=== PATIENT | female | born 1955 | race Two or more races ===

== ENCOUNTER 2019-01-21 13:15 | Inpatient (IN) | payer MEDICARE, OTHER ==
[~2019-01-21] VITALS: Ht 152.4 cm; Wt 132.0 kg
--- NOTE | 2019-01-21 13:30 | NUR ---
[id number] FRM HOME C/O WORSENING SOB. BLE EDEMA NOTED. BG 198 PRINT PROJECT MANAGER. PT AAOX4, VSS. DENIES CP, DIZZINESS, N/V, WEAKNESS AT THIS TIME. DR. QUINTANILLA AT BS FOR EVAL. PLACED ON SPACE OPERATIONS OFFICER. PLACED ON O2 2L, 97%, PT AMMON WELL. WILL CONT TO MONITOR. DAUGHTER AT BS.
[2019-01-21] MEDS ORDERED: MAG HYDROX/AL HYDROX/SIMETH 30 ML UDC ONE (13:56)
[2019-01-21] MEDS ORDERED: LIDOCAINE VISCOUS 2% UD 15 ML UDC ONE (13:56)
[2019-01-21 13:59] LABS: BASOPHILS # (AUTO) 0.1 /CMM (0.0-0.2); BASOPHILS % (AUTO) 0.6 % (0.0-2.0); HEMATOCRIT 37 % (33-45); HEMOGLOBIN 11.8 g/dL (11.5-14.8); LYMPHOCYTES # (AUTO) 1.4 /CMM (0.8-4.8); LYMPHOCYTES % (AUTO) 13.3 % (20.0-44.0); MEAN CORPUSCULAR HGB CONC 32 g/dl (31.0-36.0); MEAN CORPUSCULAR VOLUME 91 fL (82-100); MONOCYTES # (AUTO) 0.5 /CMM (0.1-1.30); MONOCYTES % (AUTO) 4.8 % (2.0-12.0); NEUTROPHILS # (AUTO) 8.6 /CMM (1.8-8.9); NEUTROPHILS % (AUTO) 81.3 % (43.0-81.0); PLATELET COUNT (AUTO) 189 /CMM (150-450); RED BLOOD CELL COUNT(AUTO) 4.09 MIL/uL (4.0-5.2); WHITE BLOOD COUNT (AUTO) 10.6 K/uL (4.3-11.0)
[2019-01-21] MEDS ORDERED: MAG HYDROX/AL HYDROX/SIMETH 30 ML UDC PO ONE (14:00)
[2019-01-21] MEDS ORDERED: LIDOCAINE VISCOUS 2% UD 15 ML UDC MM ONE (14:00)
--- NOTE | 2019-01-21 14:13 | NUR ---
CALLED FOR TELE BED, TURNED IN MOVE SHEET.
[2019-01-21 14:17] LABS: CALCIUM, SERUM 9.3 mg/dL (8.5-10.1); CARBON DIOXIDE 35 mmol/L (21-32); CHLORIDE 100 mmol/L (98-107); CREATININE 1.1 mg/dL (0.6-1.3); GLUCOSE 178 mg/dL (74-106); POTASSIUM 3.9 mmol/L (3.5-5.1); SODIUM SERUM 140 mmol/L (136-145); UREA NITROGEN, BLOOD 22 mg/dL (7-18)
[2019-01-21 14:30] LABS: ALANINE AMINOTRANSFERASE 15 U/L (12-78); ALBUMIN 2.9 g/dL (3.4-5.0); ALKALINE PHOSPHATASE 112 U/L (46-116); ASPARTATE AMINOTRANSFERASE 11 U/L (15-37); B-TYPE NATRIURETIC PEPTIDE 3400 PG/ML (0-125); BILIRUBIN,DIRECT 0.2 mg/dL (0.0-0.2); BILIRUBIN,TOTAL 0.7 mg/dL (0.2-1.0); TOTAL PROTEIN, SERUM 6.7 g/dL (6.4-8.2)
--- NOTE | 2019-01-21 15:19 | NUR ---
CALLED FOR BED, TURNED IN MOVE SHEET
--- NOTE | 2019-01-21 15:58 | NUR ---
CALLED [facility], MOISES BENNETT PAGED
[2019-01-21] MEDS ORDERED: FUROSEMIDE 20 MG/2 ML VIAL IV ONE (16:00)
[2019-01-21] MEDS ORDERED: FUROSEMIDE 40 MG/4 ML VIAL ONE (16:10)
--- NOTE | 2019-01-21 16:57 | NUR ---
REPORT GIVEN TO MELITON GILES FOR RIKY.
--- NOTE | 2019-01-21 17:15 | NUR ---
RN Note: Pt received; A&Ox4, SOB, wheezing noted with exertion. Denies CP, dizziness. Placed on manager monitoring. Tajik speaking. A-fib on monitor. BLE +3 pitting edema noted with discoloration. IV HL patent flushed. Oriented to unit. Sindy Garcia paged for admitting orders. For full nsg assessment refer to flowsheet.
[2019-01-21 17:45] VITALS: BP 163/88
[2019-01-21] MEDS ORDERED: HYDR-4076 PO (17:45)
[2019-01-21] MEDS ORDERED: DIGO250T PO (17:45)
[2019-01-21] MEDS ORDERED: CARV25TA2 PO (17:45)
[2019-01-21] MEDS ORDERED: POTA10CA43 PO (17:45)
[2019-01-21] MEDS ORDERED: APIX5TAB4 PO (17:45)
[2019-01-21] MEDS ORDERED: METF-442 PO (17:45)
[2019-01-21] MEDS ORDERED: GLIP10TA11 PO (17:45)
[2019-01-21] MEDS ORDERED: FURO40TA5 PO (17:45)
[2019-01-21] MEDS ORDERED: ATOR20TA PO (17:45)
[2019-01-21] MEDS ORDERED: CIPR500S3 PO (17:45)
[2019-01-21 20:00] VITALS: BP 140/64
--- NOTE | 2019-01-21 20:00 | NUR ---
MERCHANDISE DELIVERER NOTE PT SITTING IN CHAIR, A/O X 4 YI SPEAKING, NO SOB, NO DISCOMFORT NOTED. DENIES PAIN. LAC #20 SL INTACT AND PATENT. CALL LIGHT WITHIN REACH. FAMILY AT BED SIDE. ALL NEEDS ATTENDED.
--- NOTE | 2019-01-21 20:01 | NUR ---
GAS DISTRIBUTION SUPERVISOR NOTE ON TELE A FIB HR 73 WITH PAC AND PVC'S.
[2019-01-21] MEDS: CARVEDILOL 12.5 MG TABLET PO SCH (21:16)
[2019-01-22] VITALS: BP 128/53
--- NOTE | 2019-01-22 | NUR ---
DENTAL THERAPIST NOTE PT IN BED ASLEEP, AROUSABLE. NO DISTRESS OR DISCOMFORT NOTED. NO S/S PAIN AT THIS TIME.
[2019-01-22 04:00] VITALS: BP 133/55
[2019-01-22 04:43] LABS: BASOPHILS # (AUTO) 0.1 /CMM (0.0-0.2); BASOPHILS % (AUTO) 0.6 % (0.0-2.0); HEMATOCRIT 37 % (33-45); HEMOGLOBIN 11.8 g/dL (11.5-14.8); LYMPHOCYTES # (AUTO) 1.9 /CMM (0.8-4.8); LYMPHOCYTES % (AUTO) 20.6 % (20.0-44.0); MEAN CORPUSCULAR HGB CONC 32 g/dl (31.0-36.0); MEAN CORPUSCULAR VOLUME 92 fL (82-100); MONOCYTES # (AUTO) 0.6 /CMM (0.1-1.30); NEUTROPHILS # (AUTO) 6.8 /CMM (1.8-8.9); NEUTROPHILS % (AUTO) 72.8 % (43.0-81.0); PLATELET COUNT (AUTO) 192 /CMM (150-450); RED BLOOD CELL COUNT(AUTO) 4.05 MIL/uL (4.0-5.2); WHITE BLOOD COUNT (AUTO) 9.3 K/uL (4.3-11.0)
[2019-01-22 04:53] LABS: APPEARANCE,URINE CLEAR (CLEAR); BILIRUBIN,URINE NEGATIVE (NEGATIVE); BLOOD, URINE NEGATIVE Ery/uL (NEGATIVE); COLOR,URINE YELLOW (YELLOW); KETONES,URINE NEGATIVE (NEGATIVE); LEUKOCYTE ESTERASE ,URINE NEGATIVE (NEGATIVE); NITRITE, URINE NEGATIVE (NEGATIVE); PH,URINE 5.5 (5.0-8.0); PROTEIN,URINE NEGATIVE (NEGATIVE); UGLUCOSE NEGATIVE (NEGATIVE); UROBILINOGEN,URINE 0.2 EU/dL (0.2)
[2019-01-22 04:56] LABS: ALBUMIN 2.9 g/dL (3.4-5.0); BILIRUBIN,TOTAL 0.7 mg/dL (0.2-1.0); CALCIUM, SERUM 9.5 mg/dL (8.5-10.1); CREATININE 1.1 mg/dL (0.6-1.3); MAGNESIUM 1.8 mg/dL (1.8-2.4); PHOSPHORUS 3.5 mg/dL (2.5-4.9); POTASSIUM 3.6 mmol/L (3.5-5.1); TOTAL PROTEIN, SERUM 6.8 g/dL (6.4-8.2)
[2019-01-22 05:15] LABS: THYROID STIMULATING HORMONE 4.055 uIU/mL (0.358-3.74)
[2019-01-22] MEDS ORDERED: DEXTROSE 50%-WATER 50 ML DISP.SYRIN IV PRN (06:00)
--- NOTE | 2019-01-22 06:09 | NUR ---
DRYWALLER NOTE PT BLOOD SUGAR 151, PT REFUSE INSULIN COVERAGE. STATES "I DID NOT EAT ANYTHING LAST NIGHT". RECHECK LATER.
--- NOTE | 2019-01-22 06:40 | NUR ---
AND DRYING SUPERVISOR COOKING CASING NOTE PT SITTING UP IN CHAIR. NO DISTRESS OR DISCOMFORT NOTED. ON TELE MONITOR A FIB HR 70. DENIES ANY PAIN. SIDE RAILS UP AND CALL LIGHT WITHIN REACH. VSS. NIK ENDORSE TO DAY SHIFT NURSE FOR CONTINUE TO CARE.
--- NOTE | 2019-01-22 07:10 | NUR ---
WAY INSPECTOR OPENING NOTE RECEIVED REPORT FROM PM NURSE.PATIENT AXOX4,[place] SPEAKING,UNDERSTAND ZAMBIAN ,NO WIRE INSERTER NEEDED.ON O2 2L VIA NASAL CANULA.BRP.ON TELE MONITOR CONTROLLED AFIB WITH PVC HR 78.IV ON LAC #20.INTACT AND PATENT.SAFETY MEASURES IN PLACE.CALL LIGHT IN REACH.DENIES ANY PAIN.PLAN OF CARE EXPLAINED TO THE PATIENT.WILL CONTINUE TO MONITOR.
[2019-01-22] MEDS: BLOOD SUGAR DIAGNOSTIC 1 EACH STRIP IN SCH ×4 (07:50→21:42)
[2019-01-22] MEDS: INSULIN REGULAR, HUMAN 100 UNIT/ML 3 ML VIAL SQ PRN ×4 (07:51→21:43)
[2019-01-22 08:00] VITALS: BP 126/72
[2019-01-22] MEDS: POTASSIUM CHLORIDE 10 MEQ TABLET.SA PO SCH ×2 (08:16→17:01)
[2019-01-22] MEDS: FUROSEMIDE 40 MG/4 ML VIAL IV SCH ×2 (08:16→17:01)
[2019-01-22] MEDS: METFORMIN 500 MG TABLET PO SCH ×2 (08:16→17:01)
[2019-01-22] MEDS: ATORVASTATIN 10 MG TABLET PO SCH (08:17)
[2019-01-22] MEDS: APIXABAN 5 MG TABLET PO SCH ×3 (08:18→17:29)
[2019-01-22] MEDS: CARVEDILOL 12.5 MG TABLET PO SCH ×2 (08:18→21:32)
[2019-01-22] MEDS: hydrALAZINE HCL 25 MG TABLET PO SCH ×3 (09:00→17:03)
[2019-01-22] MEDS ORDERED: DIGOXIN 0.25 MG TABLET PO SCH (09:00)
--- NOTE | 2019-01-22 11:00 | NUR ---
JAVA TECHNICAL MANAGER NOTE SEEN BY ,UPDATED ABOUT NEW CONSULT AND PATIENT CONDITION ,ABOUT HR LOW IN 40'S WITH CONTROLLED AFIB.GOT NEW ORDERS.
[2019-01-22 11:21] LABS: ABG BASE EXCESS 8.2 mmol/L; ABG OXYGEN SATURATION 95.3 % (92.0-98.5); ABG PCO2 53.4 mmHg (35.0-45.0); ABG PH 7.424 (7.350-7.450); ABG PO2 76.9 mmHg (75.0-100.0); AaDO2 74.3 mmHg; COHb 1.4 % (0.5-1.5); MetHb 0.3 % (0.0-1.5); O2Hb 93.7 % (94.0-97.0); SITE, ABG Right Radial; VENT MODE, BG 2.5 LPM NC
[2019-01-22 12:00] VITALS: BP 123/70
--- NOTE | 2019-01-22 15:56 | NUR ---
POOLROOM TABLE ATTENDANT NOTE SEEN BY ZBIGNIEW MCLEOD SPOKE TO THE PATIENT,UPDATED ABOUT PATIENT CONDITION WITH LABS TSH LEVEL.NNO.F/U WITH LABS IN AM.SEEN BY FOREMAN SHIPPING DEPARTMENT ,GOT NEW ORDERS.ABG RESULT RELAYED NNO.WILL CONTINUE SAME TREATMENT.
[2019-01-22 16:00] VITALS: BP 130/62
--- NOTE | 2019-01-22 18:55 | NUR ---
MARBLE RUBBER CLOSING NOTE .PATIENT AXOX4,SLOV[place] SPEAKING,UNDERSTAND URDU ,NO BILLING TYPIST NEEDED.ON O2 2L VIA NASAL CANULA.BRP.ON TELE MONITOR CONTROLLED AFIB WITH PVC HR 68.IV ON LAC #20.INTACT AND PATENT.SAFETY MEASURES IN PLACE.CALL LIGHT IN REACH.DENIES ANY PAIN.NOCTURNAL CPAP ,AND MONITOR NOCTURNAL OXY METRY.WILL ENDORSE TO PM NURSE FOR RIKY.
[2019-01-22 20:00] VITALS: BP 124/53
[2019-01-23] VITALS: BP 118/56
[2019-01-23 04:00] VITALS: BP 103/64
[2019-01-23 06:19] LABS: BASOPHILS # (AUTO) 0.1 /CMM (0.0-0.2); BASOPHILS % (AUTO) 0.7 % (0.0-2.0); EOSINOPHILS % (AUTO) 0.2 % (0.0-6.0); HEMATOCRIT 38 % (33-45); HEMOGLOBIN 11.7 g/dL (11.5-14.8); LYMPHOCYTES # (AUTO) 1.8 /CMM (0.8-4.8); LYMPHOCYTES % (AUTO) 19.6 % (20.0-44.0); MEAN CORPUSCULAR HGB CONC 31 g/dl (31.0-36.0); MEAN CORPUSCULAR VOLUME 90 fL (82-100); MONOCYTES # (AUTO) 0.5 /CMM (0.1-1.30); MONOCYTES % (AUTO) 5.3 % (2.0-12.0); NEUTROPHILS # (AUTO) 6.7 /CMM (1.8-8.9); NEUTROPHILS % (AUTO) 74.2 % (43.0-81.0); PLATELET COUNT (AUTO) 198 /CMM (150-450); RED BLOOD CELL COUNT(AUTO) 4.15 MIL/uL (4.0-5.2)
[2019-01-23 06:37] LABS: CALCIUM, SERUM 9.2 mg/dL (8.5-10.1); CREATININE 1.1 mg/dL (0.6-1.3); MAGNESIUM 1.7 mg/dL (1.8-2.4); PHOSPHORUS 3.8 mg/dL (2.5-4.9); POTASSIUM 3.9 mmol/L (3.5-5.1)
--- NOTE | 2019-01-23 07:10 | NUR ---
RN INITIAL NOTES PATIENT IN CHAIR, AWAKE AND ALERT. WAS ABLE TO AMBULATE BY HERSELF TO GO TO THE RESTROOM, STEADY GAIT. ON TELE MONITOR, AFIB AT 60. PATIENT HAS BEEN MD SINCERE AWARE AND DIG HAS BEEN HELD. SKIN IS INTACT. HAS A LEFT AC #20. PER NOC SHIFT, PATIENT HAS AN ORDER FOR NOCTURNAL OXYMETRY CHECK, RECORDS IN FRONT OF THE CHART. NO COMPLAINS OF ANY PAIN NOR SOB. PATIENT'S BED ON LOWEST POSITION. CALL LIGHT WITHIN REACH. WILL CONTINUE TO MONITOR PATIENT CLOSELY
[2019-01-23 08:00] VITALS: BP 112/66
[2019-01-23] MEDS: INSULIN REGULAR, HUMAN 100 UNIT/ML 3 ML VIAL SQ PRN ×2 (08:13→12:09)
[2019-01-23] MEDS: POTASSIUM CHLORIDE 10 MEQ TABLET.SA PO SCH (08:14)
[2019-01-23] MEDS: ATORVASTATIN 10 MG TABLET PO SCH (08:14)
[2019-01-23] MEDS: METFORMIN 500 MG TABLET PO SCH ×2 (08:14→16:41)
[2019-01-23] MEDS: FUROSEMIDE 40 MG/4 ML VIAL IV SCH (08:14)
[2019-01-23] MEDS: BLOOD SUGAR DIAGNOSTIC 1 EACH STRIP IN SCH ×2 (08:15→12:05)
[2019-01-23] MEDS: CARVEDILOL 12.5 MG TABLET PO SCH (08:15)
[2019-01-23] MEDS: hydrALAZINE HCL 25 MG TABLET PO SCH ×3 (08:15→16:41)
[2019-01-23] MEDS: APIXABAN 5 MG TABLET PO SCH ×2 (08:19→16:42)
--- NOTE | 2019-01-23 08:38 | NUR ---
WOUND CARE CONSULT: PT PRESENTS AMBULATORY AND CONTINENT WITH LOWER EXTREMITY SKIN DISCOLORATION (CHRONIC) PER PT, PRESENT ON ADMISSION. CURRENT NESHA SCORE IS 20. WILL SEE PRN.
[2019-01-23] MEDS ORDERED: Z GUARD REMEDY 2 OZ OINT TP PRN (09:00)
[2019-01-23] MEDS ORDERED: POTASSIUM CHLORIDE 20 MEQ TAB.PRT.SR PO SCH (10:00)
[2019-01-23] MEDS ORDERED: FUROSEMIDE 40 MG TABLET PO SCH (10:00)
--- NOTE | 2019-01-23 10:40 | NUR ---
RN NOTES SAW AN ORDER FOR LASIX AND K DUR AT 1000 DAILY. PATIENT HAS BEEN GIVEN LASIX AND K DUR AT 0830. CALLED PHARMACY, THEY WILL CHANGE IT FOR TOMORROW'S DOSE
[2019-01-23 12:00] VITALS: BP 119/54
[2019-01-23] MEDS: Magnesium 1GM/D5W 100ML PREMIX 100 ML IV SCH ×2 (12:05→15:30)
--- NOTE | 2019-01-23 14:04 | NUR ---
RN NOTES APRESOLINE NOT GIVEN, BP 90/53
[2019-01-23] MEDS ORDERED: POTA20TA83 PO (15:54)
[2019-01-23 16:00] VITALS: BP_SYST 115; BP_SYST 126; BP_DIAS 63; BP_DIAS 72
[2019-01-23 16:41] VITALS: BP 126/72
--- NOTE | 2019-01-23 17:27 | NUR ---
CHILD NUTRITION MANAGER NOTE PATIENT LEFT VIA WHEELCHAIR ACCOMPANIED BY THE RETAIL TRAINING MANAGER. PATIENT STABLE, VSS. ALL MEDS GIVEN. NEW PRESCRIPTION IN EXIT CARE PACKET. PATIENT LEFT WITH HER . DISCHARGE INSTRUCTIONS WAS GIVEN TO THE PATIENT ALONGSIDE WITH . WOUND PHOTOS TAKEN IN CHART. NO COMPLAINS OF ANY SOB OR PAIN. BELONGINGS LIST SIGNED AND IN CHART.
[2019-01-24] MEDS ORDERED: FUROSEMIDE 40 MG TABLET PO SCH (09:00)
== END 2019-01-23 18:36 | disposition home or self-care (01) | DRG 291 ==
LOC: ER 13:15 → TELE1 15:29 → MEDSG1 01-23 11:35
PROVIDERS: ADMIT Registered Nurse; ATTEND Registered Nurse
DX: I11.0 Hypertensive heart disease with heart failure (principal); J96.02 Acute respiratory failure with hypercapnia; J96.01 Acute respiratory failure with hypoxia; E44.0 Moderate protein-calorie malnutrition; Z68.43 Body mass index [BMI] 50.0-59.9, adult; E66.2 Morbid (severe) obesity with alveolar hypoventilation; E11.9 Type 2 diabetes mellitus without complications; J44.9 Chronic obstructive pulmonary disease, unspecified; F41.9 Anxiety disorder, unspecified; I48.91 Unspecified atrial fibrillation; Z79.01 Long term (current) use of anticoagulants; Z87.891 Personal history of nicotine dependence; E88.09 Other disorders of plasma-protein metabolism, not elsewhere classified; Z79.84 Long term (current) use of oral hypoglycemic drugs; I50.33 Acute on chronic diastolic (congestive) heart failure
CPT/HCPCS: 36415; 36600; 71045-TC; 80048-TC; 80053-TC; 80061-TC; 80076-TC; 80162-TC; 81000-TC; 82803-TC; 82962-TC; 83690-TC; 83735-TC; 83880; 84100-TC; 84443-TC; 84484-TC; 85025-TC; 85730-TC; 87081-TC; 93307-TC; 94760-TC; G0378; J1815; J1940; J3475; J7050

== ENCOUNTER 2020-05-13 14:00 | Outpatient (CLI) | payer MEDICARE, OTHER ==
[~2020-05-13 14:00] MED LIST: APIX5TAB4 PO; ATOR20TA PO; CARV25TA2 PO; FURO40TA5 PO; GLIP10TA11 PO; HYDR-4076 PO; METF-442 PO; POTA20TA83 PO
== END 2020-05-13 23:59 | disposition home health service (06) ==
LOC: WOU 14:00
PROVIDERS: ATTEND Podiatrist Foot & Ankle Surgery
DX: I87.311 Chronic venous hypertension (idiopathic) with ulcer of right lower extremity (principal); L97.812 Non-pressure chronic ulcer of other part of right lower leg with fat layer exposed; E11.42 Type 2 diabetes mellitus with diabetic polyneuropathy; Z79.84 Long term (current) use of oral hypoglycemic drugs; E66.01 Morbid (severe) obesity due to excess calories; Z68.43 Body mass index [BMI] 50.0-59.9, adult; I87.2 Venous insufficiency (chronic) (peripheral); R60.1 Generalized edema; B35.1 Tinea unguium; Z99.81 Dependence on supplemental oxygen; Z79.01 Long term (current) use of anticoagulants; Z79.899 Other long term (current) drug therapy
CPT/HCPCS: 11042; A6207

== ENCOUNTER 2020-05-27 13:30 | Outpatient (CLI) | payer MEDICARE, OTHER | END 2020-05-27 23:59 | disposition home health service (06) | LOC: WOU 13:30 | PROVIDERS: ATTEND Podiatrist Foot & Ankle Surgery | DX: I87.311 Chronic venous hypertension (idiopathic) with ulcer of right lower extremity (principal); L97.812 Non-pressure chronic ulcer of other part of right lower leg with fat layer exposed; I87.2 Venous insufficiency (chronic) (peripheral); E11.42 Type 2 diabetes mellitus with diabetic polyneuropathy; Z79.84 Long term (current) use of oral hypoglycemic drugs; E66.01 Morbid (severe) obesity due to excess calories; Z68.43 Body mass index [BMI] 50.0-59.9, adult; B35.1 Tinea unguium; Z99.81 Dependence on supplemental oxygen; R60.1 Generalized edema; Z79.899 Other long term (current) drug therapy; Z79.01 Long term (current) use of anticoagulants | CPT/HCPCS: 11042; A6207; A6452 ×2 ==

== ENCOUNTER 2020-06-03 13:15 | Outpatient (CLI) | payer MEDICARE, OTHER | END 2020-06-03 23:59 | disposition home or self-care (01) | LOC: WOU 13:15 | PROVIDERS: ATTEND Podiatrist Foot & Ankle Surgery | DX: I87.311 Chronic venous hypertension (idiopathic) with ulcer of right lower extremity (principal); L97.812 Non-pressure chronic ulcer of other part of right lower leg with fat layer exposed; E66.01 Morbid (severe) obesity due to excess calories; Z68.43 Body mass index [BMI] 50.0-59.9, adult; I87.2 Venous insufficiency (chronic) (peripheral); E11.42 Type 2 diabetes mellitus with diabetic polyneuropathy; Z79.84 Long term (current) use of oral hypoglycemic drugs; Z79.01 Long term (current) use of anticoagulants; Z79.899 Other long term (current) drug therapy; I50.9 Heart failure, unspecified; R60.1 Generalized edema; B35.1 Tinea unguium; Z99.81 Dependence on supplemental oxygen | CPT/HCPCS: 11042; A6452 ==

== ENCOUNTER 2020-06-17 12:50 | Outpatient (CLI) | payer MEDICARE, OTHER | END 2020-06-17 23:59 | disposition home or self-care (01) | LOC: WOU 12:50 | PROVIDERS: ATTEND Podiatrist Foot & Ankle Surgery | DX: I87.311 Chronic venous hypertension (idiopathic) with ulcer of right lower extremity (principal); L97.812 Non-pressure chronic ulcer of other part of right lower leg with fat layer exposed; I87.2 Venous insufficiency (chronic) (peripheral); E11.42 Type 2 diabetes mellitus with diabetic polyneuropathy; Z79.84 Long term (current) use of oral hypoglycemic drugs; E66.01 Morbid (severe) obesity due to excess calories; Z68.43 Body mass index [BMI] 50.0-59.9, adult; B35.1 Tinea unguium; R60.1 Generalized edema; Z99.81 Dependence on supplemental oxygen; Z79.01 Long term (current) use of anticoagulants; Z79.899 Other long term (current) drug therapy | CPT/HCPCS: 11042 ==

== ENCOUNTER 2020-07-01 13:20 | Outpatient (CLI) | payer MEDICARE, OTHER | END 2020-07-01 23:59 | disposition home or self-care (01) | LOC: WOU 13:20 | PROVIDERS: ATTEND Podiatrist Foot & Ankle Surgery | DX: I87.311 Chronic venous hypertension (idiopathic) with ulcer of right lower extremity (principal); L97.812 Non-pressure chronic ulcer of other part of right lower leg with fat layer exposed; E11.42 Type 2 diabetes mellitus with diabetic polyneuropathy; Z79.84 Long term (current) use of oral hypoglycemic drugs; I87.2 Venous insufficiency (chronic) (peripheral); E66.01 Morbid (severe) obesity due to excess calories; Z68.43 Body mass index [BMI] 50.0-59.9, adult; B35.1 Tinea unguium; R60.1 Generalized edema; Z79.01 Long term (current) use of anticoagulants; Z99.81 Dependence on supplemental oxygen | CPT/HCPCS: 11042 ==